=== PATIENT | male | born 1970 | race Hispanic/Latino ===

== ENCOUNTER → 2022-06-06 | Outpatient (CLI) | payer OTHER ==
[~2022-06-06] MED LIST: GEMF600T89 PO; PARO-160 PO; ROSU5TAB PO
== END | disposition home or self-care (01) ==
LOC: OIH 14:20
PROVIDERS: ATTEND Physician Assistant
DX: Z13.6 Encounter for screening for cardiovascular disorders (principal)
CPT/HCPCS: 75571